=== PATIENT | male | born 1970 | race Caucasian/White ===

== ENCOUNTER 2016-04-26 10:05 | Emergency (ER) | payer BC, OTHER ==
[~2016-04-26] VITALS: Ht 182.9 cm; Wt 106.6 kg
[~2016-04-26 10:05] MED LIST: ALBUAER2 INH
[2016-04-26 10:11] VITALS: TEMP 36.4
[2016-04-26 10:49] LABS: HEMATOCRIT 46.2 % (42-52); MEAN CELL VOLUME 88.3 fL (80-100); MEAN CORPUSCULAR HEMOGLOBIN 30.6 pg (25-34); MEAN CORPUSCULAR HGB CONC 34.6 g/dl (32-36); MEAN PLATELET VOLUME 10.6 fL (7.4-10.4); PLATELET COUNT 271 K/uL (130-400); RED BLOOD COUNT 5.23 M/uL (4.7-6.1); WHITE BLOOD COUNT 8.29 K/uL (4.8-10.8)
[2016-04-26 10:59] LABS: PARTIAL THROMBOPLASTIN RATIO 1.1; PROTHROMBIN TIME (PATIENT) 10.4 SECONDS (9.0-12.0)
[2016-04-26 11:01] LABS: ALB/GLOB RATIO 1.2 (0.9-2); ALKALINE PHOSPHATASE 109 U/L (45-117); ALT/SGPT 53 U/L (12-78); AST/SGOT 34 U/L (15-37); BLOOD UREA NITROGEN 16 mg/dl (7-18); BUN/CREATININE RATIO 13.3 (10-20); CALCIUM 9.3 mg/dl (8.5-10.1); CARBON DIOXIDE 23 mmol/L (21-32); CHLORIDE 105 mmol/L (98-107); GLUCOSE 147 mg/dl (70-99); POTASSIUM 4.1 mmol/L (3.5-5.1); SODIUM 140 mmol/L (136-145)
[2016-04-26] MEDS ORDERED: AZITTAB PO (11:04)
[2016-04-26] MEDS ORDERED: ASPIRIN 81 MG CHEW PO STA (11:40)
[2016-04-26] MEDS ORDERED: NITROGLYCERIN 0.4 MG SL PER TAB CHARGE SL PRN ×2 (11:45→12:45)
--- NOTE | 2016-04-26 11:46 | DIAGNOSTIC IMAGING REPORT ---
CHEST ONE VIEW PORTABLE CLINICAL HISTORY: Atypical chest pain COMPARISON STUDY: No previous studies for comparison. FINDINGS: The cardiac and mediastinal contours are normal. There is no evidence of focal pulmonary consolidation. There is no evidence of failure. No pleural effusions are visualized.[ IMPRESSION: No active disease in the chest. Electronically signed by: Edgar Medina M.D. 04/26/2016 11:44 AM Dictated Date/Time: 04/26/2016 11:44 AM
[2016-04-26 12:20] VITALS: O2SAT 97
[2016-04-26 12:26] VITALS: Ht 182.9 cm; Wt 106.6 kg
[2016-04-26] MEDS ORDERED: MAGNESIUM HYDROXIDE SUSP 30 ML UDC PO PRN (12:45)
[2016-04-26] MEDS ORDERED: ONDANSETRON INJ 2 MG/ML 2 ML VIAL IV PRN (12:45)
[2016-04-26] MEDS ORDERED: POLYETHYLENE (MIRALAX) 17 GM PACK PO PRN (12:45)
[2016-04-26] MEDS ORDERED: ACETAMINOPHEN 325 MG TAB PO PRN (12:45)
[2016-04-26] MEDS ORDERED: MoRPHine SULFATE 2 MG/ML CARP IV PRN (12:45)
[2016-04-26] MEDS ORDERED: ALUMINUM/MAGNESIUM/SIMETH (MAALOX MAX) 30 ML UDC PO PRN (12:45)
[2016-04-26] MEDS ORDERED: ALBUTEROL HFA 8 GM INHALER INH PRN (13:00)
[2016-04-26] MEDS ORDERED: IV FLUIDS COMPLETED PRN (14:00)
--- NOTE | 2016-04-26 14:09 | Medical Consult ---
Consultation Date of Consultation: Apr 26, 2016. Attending Physician: Reason for Consultation: Evaluation for Admission History of Present Illness Mr. Mckinley is a 46 y/o male with PMHx of Asthma and HLD who presents to the ED for L sided chest pain x 5-6 days. He states that approx 5 days ago he develop a mild chest pain that was located in the L chest that is approx alf between the sternum and L nipple without radiation. He was going about his normal daily routine but denies over exertion. He cannot pinpoint a specific event that triggered this pain but states it has remained constant with a waxing and waning quality. This pain is aggravated even with minimal physical activity and reduces with rest but does not resolve. He describes the pain as aching predominantly but has intermittent sharp sensations when pain intensifies. On 04/22/16 he was having sore throat and cough and was seen in [facility] and started on Zpak and reports that URI symptoms have improved but did not notice a change with the CP. He did take one 81 mg ASA last night without relief. POA, he was sitting on his couch when the CP exacerbated and he rates it a 10/10 with associated SOB, nausea, and lightheadedness. Pain has been improving but still remains and he states it is a 2/10 even after nitro and ASA administration. Reports associated tingling of the fingers bilaterally. Initially it was only noticed in the R fingers but is now bilateral. He reports that this symptom started in the setting of this chest pain 5-6 days ago. Significant for a FMHx of OH and stents in father. States increase in stress level as patient's father is currently hospitalized. He denies fever/chills, diaphoresis, CP with deep breathing, vomiting, abdominal pain, dysuria, constipation/diarrhea. In the ED, he was treated with ASA 324 mg daily and Nitro x 1. He reports improvement in symptoms but not complete resolution. Initial cardiac enzymes negative. EKG with NSR with PVCs without evidence of ischemia or elevations. CXR is negative for acute cardiopulmonary findings. Will obtain another troponin with plans to perform stress today. Spoke with Dr. Perez, discussed the case with him. Will obtain repeat troponin with possible stress testing after 1500 if trop negative. Further intervention pending results of stress testing. If negative patient is suitable for D/C home. Family History Myocardial Infarction FATHER Social History Smoking Status: Former Smoker Smokeless Tobacco Use: No Alcohol Use: socially Drug Use: none Marital Status: Housing Status: lives with family Occupation Status: employed Allergies Coded Allergies: No Known Allergies (Unverified , 04/26/16) Current Inpatient Medications Current Inpatient Medications Medications (Trade) Dose Ordered Sig/La Route Start Time Stop Time Status Last Admin Dose Admin Nitroglycerin (Nitrostat Tab) 0.4 mg PRN PRN SL 04/26/16 11:45 05/26/16 11:44 04/26/16 11:58 0.4 MG Albuterol (Ventolin Hfa Inhaler) 2 puffs QID PRN INH 04/26/16 13:00 05/26/16 12:59 Review of Systems Constitutional: No chills, No fever Eyes: No worsening of vision ENT: No nasal symptoms, No sore throat Respiratory: + shortness of breath (resolved), No cough Cardiovascular: + chest pain (constant; wax and wanes), No edema, No palpitations Abdomen: + nausea (resolved), No GI bleeding, No constipation, No diarrhea, No pain, No vomiting Musculoskeletal: No calf pain, No swelling Genitourinary - Male: No dysuria Neurologic: + numbness/tingling (bilateral fingers) Psychiatric: + problem reported (reports increased stress) Hematologic / Lymphatic: No abnormal bleeding/bruising, No clotting problems Integumentary: No rash Physical Exam Date Time Temp Pulse Resp B/P Pulse Ox O2 Delivery O2 Flow Rate FiO2 04/26/16 13:22 87 04/26/16 12:26 Room Air 04/26/16 12:20 97 Nasal Cannula 2.0 04/26/16 11:57 85 18 135/100 97 Room Air 04/26/16 10:41 99 Room Air 04/26/16 10:40 82 19 154/90 100 Room Air 04/26/16 10:23 82 04/26/16 10:11 36.4 103 22 179/95 97 Room Air General Appearance: WD/WN, no apparent distress Head: normocephalic, atraumatic Eyes: PERRL, EOMI, sclerae normal ENT: hearing grossly normal, pharynx normal Neck: supple, no adenopathy, thyroid normal, no JVD, trachea midline Respiratory/Chest: lungs clear, normal breath sounds, no respiratory distress, no accessory muscle use Cardiovascular: regular rate, rhythm, no gallop, no murmur Abdomen/GI: normal bowel sounds, non tender, soft Back: normal inspection, no CVA tenderness Extremities/Musculoskelatal: no calf tenderness, no pedal edema, + pertinent finding (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; no motor abnormalities) Neurologic/Psych: alert, oriented x 3 Skin: normal color, warm/dry Laboratory Results Last 24 Hours Test 04/26/16 10:20 04/26/16 13:33 White Blood Count 8.29 K/uL Red Blood Count 5.23 M/uL Hemoglobin 16.0 g/dL Hematocrit 46.2 % Mean Corpuscular Volume 88.3 fL Mean Corpuscular Hemoglobin 30.6 pg Mean Corpuscular Hemoglobin Concent 34.6 g/dl RDW Standard Deviation 37.7 fL RDW Coefficient of Variation 11.8 % Platelet Count 271 K/uL Mean Platelet Volume 10.6 fL Prothrombin Time 10.4 SECONDS Prothromb Time International Ratio 1.0 Activated Partial Thromboplast Time 29.7 SECONDS Partial Thromboplastin Ratio 1.1 Sodium Level 140 mmol/L Potassium Level 4.1 mmol/L Chloride Level 105 mmol/L Carbon Dioxide Level 23 mmol/L Anion Gap 12.0 mmol/L Blood Urea Nitrogen 16 mg/dl Creatinine 1.20 mg/dl Est Creatinine Clear Calc Drug Dose 98.1 ml/min Estimated GFR () 84.1 Estimated GFR (Non- 72.6 BUN/Creatinine Ratio 13.3 Random Glucose 147 mg/dl Calcium Level 9.3 mg/dl Total Bilirubin 0.4 mg/dl Aspartate Amino Transf (AST/SGOT) 34 U/L Alanine Aminotransferase (ALT/SGPT) 53 U/L Alkaline Phosphatase 109 U/L Total Creatine Kinase 159 U/L Creatine Kinase MB 1.6 ng/ml Creatine Kinase MB Ratio 1.0 Troponin I < 0.015 ng/ml Total Protein 7.6 gm/dl Albumin 4.2 gm/dl Globulin 3.4 gm/dl Albumin/Globulin Ratio 1.2 Assessment & Plan Mr. Mckinley is a 46 y/o male with PMHx of Asthma and HLD who presents to the ED for L sided chest pain. Chest Pain: R/O ACS vs Angina vs Costochondritis vs Musculoskeletal vs GI vs Anxiety - Initial cardiac enzymes are negative with EKG of NSR with PVC without ST elevation or depressions or T wave abnormalities - Risk Factors: HLD (per patient), CP with rest, FMHx of father with OH in 50s - Obtain another troponin - Possible stress test on 04/26/16 to R/O ischemia or cardiac abnormalities Disposition: - Will obtain next troponin - if negative will discuss with Dr. Perez - Plan for possible stress testing after 1500 today - Suitable for D/C after stress if negative as cardiac etiology will be ruled out -- Recommend follow up with PCP in 1-2 weeks for monitoring PA Physician Supervision Note: I interviewed and examined the patient. Discussed with Annetta LUZ and agree with findings and plan as documented in the note. Any exceptions or clarifications are listed here: None PT has recently been treated for bronchitis, has ill father in hospital, developed chest pain at rest, no acute ECG changes or serology vitals stable car is regular, lungs are clear, no reproducible pain underwent stress echo, results are normal cardiac function recommend discharge, will start ppi and follow up with family doctor Documented By: Aime Braden
[2016-04-26] MEDS ORDERED: PRLSR20 PO (16:11)
--- NOTE | 2016-04-26 16:13 | Discharge Instructions ---
Discharge Instructions Admission Reason for Admission: Chest Pain Discharge Discharge Diagnosis / Problem: non cardiac chest pain Discharge Goals Goal(s): Diagnostic testing, Therapeutic intervention Activity Recommendations Activity Limitations: resume your previous activity Lifting Limitations: none Exercise/Sports Limitations: none . Instructions / Follow-Up Instructions / Follow-Up Since this maybe reflux, Rx for prilosec sent to pharmacy, recommend follow up with primary care provider Current Hospital Diet Patient's current hospital diet: AHA Diet (Heart Healthy) Discharge Diet Recommended Diet: Regular Diet Procedures Procedures Performed: cardiac stress echo negative for suggestion that pain was from heart(angina) Pending Studies Studies pending at discharge: no Medical Emergencies . Who to Call and When: Medical Emergencies: If at any time you feel your situation is an emergency, please call 911 immediately. . Non-Emergent Contact Non-Emergency issues call your: Primary Care Provider . . "Provider Documentation" section prepared by Aime Braden. VTE Core Measure Inpt VTE Proph given/why not?: Treatment not indicated
[2016-04-26 16:15] VITALS: BP 110/80; PULSE 102; O2SAT 96
--- NOTE | 2016-04-26 17:25 | EXERCISE STRESS ECHO ---
*NOTICE TO RECEIVING REPUBLICAN AGENCY This information is strictly Confidential and protected under [place] law. [place] law prohibits you from making any further disclosure of this information unless further disclosure is expressly permitted by the written consent of the person to whom it pertains or is authorized by law. A general authorization for the release of medical or other information is not sufficient for this purpose. Hospital accepts no responsibility if the information is made available to any other person, INCLUDING THE PATIENT. Interpretation Summary * Name: PRIYANKA LUCAS Study Date: 04/26/2016 03:07 PM BP: 122/76 mmHg * Patient Location: [address] HR: 75 * : 1970 (M/d/yyyy) Gender: Male Height: 72 in * Age: 46 yrs Ethnicity: [place] Weight: 235 lb * Ordering Physician: Annetta Kelly * Performed By: Veronika Galindo RDCS * * Reason For Study: Chest pain * BSA: 2.3 m2 * Quad and go study performed as per Dr. Perez's preference. * -- Conclusions -- * Normal stress echocardiogram at 10.9 METS and a peak heart rate of >100% maximum predicted. * No change in baseline chest pain. * No EKG changes. * Baseline echocardiogram notes normal left ventricular systolic function. Procedure Details * ECHOEX, CPT #46839 Left Ventricle * Resting wall motion: Normal. Stress wall motion: Appropriate increase in Left ventricular systolic function and decrease in cavity size. No stress induced segmental wall motion abnormalities. Stress Parameters * Normal baseline electrocardiogram. * Stress ECG: No ST changes. No arrhythmias. * The stress portion of this study was personally supervised by the undersigned interpreting physician. * Rest heart rate was '75' BPM. * Rest blood pressure was '122/76' * Maximum heart rate achieved was 184 bpm. * Maximum heart rate was 105 % of maximum age-predicted heart rate. * Maximum blood pressure was '157/58' * Total exercise time was '9:36' * Maximum exercise MET level achieved was '10.90' METS * Maximum treadmill speed was '4.20' miles per hour. * Maximum treadmill elevation was '16.00'% grade. * Exercise was terminated due to 'Patient fatigue and target heart rate achieved' MMode 2D Measurements and Calculations IVSd 1.4 cm LVIDd 4.3 cm LVIDs 2.8 cm LVPWd 0.98 cm IVS/LVPW 1.4 FS 35.2 % EDV(Teich) 81.5 ml ESV(Teich) 28.6 ml EF(Teich) 64.8 % EDV(cubed) 77.6 ml ESV(cubed) 21.1 ml EF(cubed) 72.8 % LV mass(C)d 174.9 grams LV mass(C)dI 76.7 grams/m\S\2 SV(Teich) 52.8 ml SI(Teich) 23.2 ml/m\S\2 SV(cubed) 56.4 ml SI(cubed) 24.7 ml/m\S\2 LA dimension 3.0 cm LVAd ap4 16.2 cm\S\2 LVLd ap4 8.3 cm EDV(MOD-sp4) 27.9 ml EDV(sp4-el) 26.9 ml LVAs ap4 9.3 cm\S\2 LVLs ap4 6.9 cm ESV(MOD-sp4) 10.9 ml ESV(sp4-el) 10.6 ml EF(MOD-sp4) 60.9 % EF(sp4-el) 60.7 % LVAd ap2 20.1 cm\S\2 LVLd ap2 8.1 cm EDV(MOD-sp2) 43.4 ml EDV(sp2-el) 42.3 ml LVAs ap2 11.6 cm\S\2 LVLs ap2 6.3 cm ESV(MOD-sp2) 17.5 ml ESV(sp2-el) 17.9 ml EF(MOD-sp2) 59.7 % EF(sp2-el) 57.6 % LVLd %diff -2.41 % EDV(MOD-bp) 35.0 ml LVLs %diff -9.64 % ESV(MOD-bp) 14.2 ml EF(MOD-bp) 59.5 % SV(MOD-sp4) 17.0 ml SI(MOD-sp4) 7.5 ml/m\S\2 SV(MOD-sp2) 25.9 ml SI(MOD-sp2) 11.4 ml/m\S\2 SV(MOD-bp) 20.8 ml SI(MOD-bp) 9.1 ml/m\S\2 SV(sp4-el) 16.3 ml SI(sp4-el) 7.2 ml/m\S\2 SV(sp2-el) 24.4 ml SI(sp2-el) 10.7 ml/m\S\2
[2016-04-27] MEDS ORDERED: ASPIRIN 81 MG ECTAB PO SCH (09:00)
--- NOTE | 2016-04-27 10:53 | EMERGENCY ROOM VISIT NOTE ---
ED Visit Note First contact with patient: 11:21 Chief Complaint: Chest pain. History of Present Illness: Mr. Mckinley is a 46 year-old white male who ambulates into the ED accompanied by his complaining of left sided chest pain. Historically patient reports he does not have a history of coronary artery disease but does have dyslipidemia. He reports his father had his first MD at age approximately 50 years old and since that time has had multiple stents Patient reports a acute onset of left sided chest pain that started approximately 5-6 days ago. The pain started when he was physically active. Since that time the pain has been constant but has waxed and waned in intensity based on his level of activity. The pain is currently placed left lateral to the sternum between the sternum and nipple. He currently describes the pain as an achy sensation and intermittently sharp. This morning approximately 10-15 minutes before he arrived he reports he was sitting on the couch and had a spike of his pain to a level of 10/10. At the same time he became nauseated and reports he felt lightheaded like he needed to pass out. The pain is nonradiating. The pain worsens with activity and is improved by rest. He reports taking 1 aspirin last night for pain without relief. Associated with the pain there has been paresthesias in the right upper extremity. Patient denies fevers, chills, sweats, skin eruptions, skin color changes, upper respiratory tract symptoms, wheezing, cough, orthopnea, dependent edema, previous clots, claudication, cramping, recent surgery/inactivity/extended travel, abdominal pain, nausea, vomiting, diarrhea, constipation, rectal bleeding, black/tarry stools, urinary symptoms, back/flank pain. Review of Systems: As noted above in history of present illness. All body systems were reviewed and found to be negative as noted above. Past Medical History: As previously noted, asthma, GERD. Current Medications: Prilosec, albuterol, Zithromax. Allergies to Medications: Patient denies. Social History: Patient is currently employed; he lives with his and children and feels safe in his home environment; he denies tobacco use and admits to rare alcohol use. Physical Examination: Vital Signs: Date Time Temp Pulse Resp B/P Pulse Ox O2 Delivery O2 Flow Rate FiO2 04/26/16 16:15 102 16 110/80 96 Room Air 04/26/16 14:56 81 18 131/82 98 Nasal Cannula 2.0 04/26/16 13:50 79 18 131/84 97 Nasal Cannula 2.0 04/26/16 13:22 87 04/26/16 12:26 Room Air 04/26/16 12:20 97 Nasal Cannula 2.0 04/26/16 11:57 85 18 135/100 97 Room Air 04/26/16 10:41 99 Room Air 04/26/16 10:40 82 19 154/90 100 Room Air 04/26/16 10:23 82 04/26/16 10:11 36.4 103 22 179/95 97 Room Air GENERAL: 46-year-old male in mild distress due to symptoms, nontoxic-appearing, afebrile and hemodynamically stable. NEUROLOGICAL: Awake, alert and oriented to person, place and time. Answering questions appropriately and following commands. Normal gait. Good hand eye coordination. SKIN: Warm, dry and pink. No soft tissue eruptions or trauma noted. HEENT: Atraumatic and normocephalic. PERRL. Sclera white and conjunctiva pink. Oral cavity moist and pink. Pharynx is nonerythematous or edematous. Speech normal. No lymphadenopathy. Trachea midline. No jugular venous distention. No carotid bruits. BACK: No tenderness over the bony spine. No CVA tenderness. THORAX: Lungs sounds are clear to auscultation and equal bilaterally with symmetrical chest wall. No wheezing, rales or rhonchi. No crepitus, tenderness , subcutaneous air or deformities noted. HEART: Regular rate and rhythm. No gallops, rubs or murmurs are appreciated. No lifts, heaves or thrills. PMI is not displaced. ABDOMEN: Flat, soft and nontender. Positive bowel sounds in all quadrants. No guarding, rigidity or organomegaly. EXTREMITIES: Moves all extremities well on command and with purpose. All distal neurovascular statuses are intact and equal bilaterally. No dependent edema or calf tenderness/cords. ED Course: Patient is assessed as noted above. Laboratory Testing: Test 04/26/16 10:20 Range/Units White Blood Count 8.29 4.8-10.8 K/uL Red Blood Count 5.23 4.7-6.1 M/uL Hemoglobin 16.0 14.0-18.0 g/dL Hematocrit 46.2 42-52 % Mean Corpuscular Volume 88.3 80-100 fL Mean Corpuscular Hemoglobin 30.6 25-34 pg Mean Corpuscular Hemoglobin Concent 34.6 32-36 g/dl RDW Standard Deviation 37.7 36.4-46.3 fL RDW Coefficient of Variation 11.8 11.5-14.5 % Platelet Count 271 130-400 K/uL Mean Platelet Volume 10.6 7.4-10.4 fL Prothrombin Time 10.4 9.0-12.0 SECONDS Prothromb Time International Ratio 1.0 0.9-1.1 Activated Partial Thromboplast Time 29.7 21.0-31.0 SECONDS Partial Thromboplastin Ratio 1.1 Sodium Level 140 136-145 mmol/L Potassium Level 4.1 3.5-5.1 mmol/L Chloride Level 105 98-107 mmol/L Carbon Dioxide Level 23 21-32 mmol/L Anion Gap 12.0 3-11 mmol/L Blood Urea Nitrogen 16 7-18 mg/dl Creatinine 1.20 0.60-1.40 mg/dl Est Creatinine Clear Calc Drug Dose 98.1 ml/min Estimated GFR () 84.1 Estimated GFR (Non- 72.6 BUN/Creatinine Ratio 13.3 10-20 Random Glucose 147 70-99 mg/dl Calcium Level 9.3 8.5-10.1 mg/dl Total Bilirubin 0.4 0.2-1 mg/dl Aspartate Amino Transf (AST/SGOT) 34 15-37 U/L Alanine Aminotransferase (ALT/SGPT) 53 12-78 U/L Alkaline Phosphatase 109 45-117 U/L Total Creatine Kinase 159 39-308 U/L Creatine Kinase MB 1.6 0.5-3.6 ng/ml Creatine Kinase MB Ratio 1.0 0-3.0 Troponin I < 0.015 0-0.045 ng/ml Total Protein 7.6 6.4-8.2 gm/dl Albumin 4.2 3.4-5.0 gm/dl Globulin 3.4 2.5-4.0 gm/dl Albumin/Globulin Ratio 1.2 0.9-2 Chest X-Rays: Were read by myself and the radiologist showing no acute infiltrates, effusions or pneumothorax. Normal heart silhouette and bony anatomy. EKG: Was read by myself and reviewed with Dr. Carranza; shows normal sinus rhythm with an occasional unifocal PVC. No acute ST changes consistent with acute infarction. No previous to compare. Patient was hydrated with normal saline and he received 324 mg of aspirin by mouth and was given 0.4 nitroglycerin sublingually; after his first sublingual tablet he had improvement of pain but I was not able to get a rating. Patient's case was reviewed with Dr. Carranza; we agreed on diagnostic approach, treatment, disposition and plan. Patient's case was consulted with case management and the hospitalist for medical observation/admission; in his decision and the hospitalist admit the patient have a stress test prior to admission. Care was transferred to Dr. Braden; please see his notes and orders for final disposition and plan. Patient was educated about tondiamond's findings. Clinical Impression: Acute chest pain. Decision-Making: Initially my differential diagnosis I considered acute coronary syndrome, thoracic aneurysm, pneumothorax, pneumonia, GERD, pulmonary embolism, musculoskeletal disorder and other causes. Disposition and Plan: Please see the hospitalist notes and orders for final disposition and plan.
== END 2016-04-26 16:33 | disposition home or self-care (01) ==
LOC: CANRESERV → ENRESERVTM → ENRESERVDT → C.EDB 10:07 → CANBEDREQ 13:18 → C.EDB 16:33
DX: R07.9 Chest pain, unspecified (principal); J45.909 Unspecified asthma, uncomplicated; E78.5 Hyperlipidemia, unspecified; Z87.891 Personal history of nicotine dependence; Z82.49 Family history of ischemic heart disease and other diseases of the circulatory system

== ENCOUNTER → 2016-07-07 | Outpatient (CLI) | payer OTHER ==
[~2016-07-07] MED LIST changes: +AZITTAB PO; +PRLSR20 PO
[2016-07-07 10:22] LABS: CHOLESTEROL/HDL RATIO 4.9
== END | disposition home or self-care (01) ==
LOC: C.RAD1850 08:44
PROVIDERS: ATTEND Family Medicine
DX: E78.5 Hyperlipidemia, unspecified (principal)

== ENCOUNTER → 2016-11-14 | Outpatient (CLI) | payer OTHER ==
[~2016-11-14] MED LIST changes: -PRLSR20 PO
== END | disposition home or self-care (01) ==
LOC: C.PATHSPEC 17:59
PROVIDERS: ATTEND Dermatology
DX: D23.30 Other benign neoplasm of skin of unspecified part of face (principal)

== ENCOUNTER 2018-05-20 19:37 | Observation (INO) ==
[2018-05-20 20:21] LABS: Basophils # (auto) 0.03 K/uL (0-0.2); Basophils % (auto) 0.3 %; Hematocrit (blood only) 44.7 % (42-52); Hemoglobin 15.3 g/dL (14.0-18.0); Immature Granulocytes # (auto) 0.09 K/uL (0.00-0.02); Immature Granulocytes % (auto) 0.9 %; Lymphocytes # (auto) 2.26 K/uL (1.2-3.4); Lymphocytes % (auto) 22.4 %; Mean Corpuscular Hgb Conc 34.2 g/dL (32-36); Mean Corpuscular Volume 89.9 fL (80-100); Mean Platelet Volume 10.6 fL (7.4-10.4); Monocytes # (auto) 0.83 K/uL (0.11-0.59); Monocytes % (auto) 8.2 %; Neutrophils # (auto) 6.66 K/uL (1.4-6.5); Neutrophils % (auto) 66.2 %; Platelet Count 268 K/uL (130-400); RDW Standard Deviation 38.7 fL (36.4-46.3); Red Blood Count 4.97 M/uL (4.7-6.1); White Blood Count 10.07 K/uL (4.8-10.8)
--- NOTE | 2018-05-20 20:24 | XRay Report ---
XR chest 1V portable HISTORY: 48 years-old Male Chest Pain acute atypical chest pain COMPARISON: Chest radiograph 05/18/2018 TECHNIQUE: Portable AP view of the chest FINDINGS: Cardiomediastinal and hilar silhouettes are within normal limits. No pneumothorax, pleural effusion, focal airspace consolidation or overt pulmonary edema. Bones of the chest appear grossly intact. IMPRESSION: No acute process. The above report was generated using voice recognition software. It may contain grammatical, syntax o r spelling errors. Electronically signed by: Jer Nixon M.D. 05/20/2018 8:23 PM
[2018-05-20 20:39] LABS: Blood Urea Nitrogen 19 mg/dl (7-18); Calcium 8.9 mg/dl (8.5-10.1); Carbon Dioxide 27 mmol/L (21-32); Chloride 106 mmol/L (98-107); Creatinine Clr Calc Pharmacy 87.2 ml/min; Est GFR (African American) 73.9; Est GFR (Non-African American) 63.8; Glucose 91 mg/dl (70-99); Potassium 3.9 mmol/L (3.5-5.1); Sodium 140 mmol/L (136-145)
[2018-05-20 20:43] LABS: Troponin I < 0.015 ng/ml (0-0.045)
--- NOTE | 2018-05-20 23:14 | History & Physical Report ---
Date of Service May 20, 2018 Assessment & Plan (1) Constricting chest pain often radiating down left arm: The patient was initially woken up from sleep by this pain. Is been persistent over the past 2 days but to a lesser extent. Very strong family history with his father, paternal grandfather and paternal uncle all having MIs at a young age. His sister recently had an ablation for an unknown process. The patient will be admitted to telemetry for serial cardiac enzymes, serial EKG's, cardiac rhythm monitoring and a 2-D echocardiogram with Dopplers. He has been given aspirin 324 mg today. Continue aspirin 81 mg daily. He had a negative stress echocardiogram 2 years ago. If his above workup is negative, consideration should be given to a stress echocardiogram versus cardiac catheterization due to very significant family history of premature coronary artery disease Present on Admission?: Yes (2) Hyperlipidemia: Continue atorvastatin 10 mg daily. Check a fasting lipid panel and hemoglobin A1c Present on Admission?: Yes (3) GERD (gastroesophageal reflux disease): Change omeprazole 20 mg daily to pantoprazole 40 mg daily Present on Admission?: Yes History of Present Illness Chief Complaint: The Patient presents to the emergency department with persistence of left-sided chest discomfort as was initially noted 2 days ago. Primary Care Provider: Deloris Vilchis MD The patient is a 48-year-old male who initially developed left-sided chest discomfort that woke him up 2 days ago. The pain at times did radiate to his left arm. As the pain persisted, the patient presented to the emergency department for assessment, had a negative workup at that time, was advised to be admitted, but he went home at that time. The pain has persisted but to less intensity for the past 2 days. He presents to the emergency department today due to a friend bring him in. The pain has been constant over the past 2 days, but he does report that at times he is not aware of it. His symptoms also initially included dizziness with some nausea upon standing, which is somewhat improved at this time. He had no previous occurrences of these symptoms. He has not had any change in his eating or exercise habits. He has a very strong family history of heart disease, with his father, paternal grandfather and paternal uncle all having MIs at a young age. His sister recently had an ablation for an unknown diagnosis. He reports having a negative stress echo test done 2 years ago. Allergies Allergy/AdvReac Type Severity Reaction Status Date / Time No Known Allergies Allergy Unknown Verified 05/20/18 22:16 Home Medications Home Medications Medication Instructions Recorded Confirmed Type atorvastatin 10 mg PO DAILY 05/18/18 05/20/18 History omeprazole 20 mg PO DAILY 05/18/18 05/20/18 History Past Med/Surg History Medical History High cholesterol Surgical History No pertinent past surgical history Family History Other Heart attack Social History Feels Safe at Home: Yes Smoking Status: Never smoker Review of Systems The patient denies palpitations, shortness of breath, dyspnea on exertion, cough , lower extremity swelling, sore throat, fevers, chills, sweats, weight change, fatigue, vomiting, diarrhea , constipation, abdominal pain, pelvic pain, blood in urine or stool, dysuria, urinary frequency or urgency, headache, memory loss, loss of consciousness, rash, abnormal bruising or bleeding, imbalance, focal or generalized weakness, numbness or tingling in right arm or bilateral legs, generalized arthralgias or myalgias, back or neck pain, or night sweats. The review of systems is otherwise negative other than for that already noted above, and at least 10 systems have been reviewed. Physical Exam 2 Vital Signs (Past 24 Hours): Last Vital Signs Temp 36.5 C 05/20/18 19:42 Pulse 85 05/20/18 21:31 Resp 20 05/20/18 21:31 BP 149/76 H 05/20/18 21:31 Pulse Ox 97 05/20/18 21:31 Physical Exam: The patient is awake, alert and oriented 3, well developed and well nourished, normocephalic and atraumatic, lying in bed and in no acute distress. HEENT--PERRL, EOMI, mucous membranes and oropharynx dry. Neck--supple. No JVD. No bruits. Thyroid normal, trachea midline, no adenopathy. Heart--normal S1 and S2. No murmurs, rubs or gallops. Lungs--clear bilaterally, no respiratory distress, no accessory muscle use. Abdomen--normal bowel sounds and soft. Nontender. Nondistended, no hernias or masses, no organomegaly. Extremities--no cyanosis or clubbing. No edema. There are good distal pulses b/ l. Dermatologic--normal skin turgor, normal color, no abnormal lymph nodes, no rash. Neurologic--cranial nerves II through XII grossly intact. Rheumatologic--normal range of motion. Psychiatric--normal affect. Results & Data Laboratory Results Laboratory Results WBC 10.07 K/uL (4.8-10.8) 05/20/18 20:00 RBC 4.97 M/uL (4.7-6.1) 05/20/18 20:00 Hgb 15.3 g/dL (14.0-18.0) 05/20/18 20:00 Hct 44.7 % (42-52) 05/20/18 20:00 MCV 89.9 fL (80-100) 05/20/18 20:00 MCH 30.8 pg (25-34) 05/20/18 20:00 MCHC 34.2 g/dL (32-36) 05/20/18 20:00 RDW Std Deviation 38.7 fL (36.4-46.3) 05/20/18 20:00 RDW Coeff of Juan F 12.0 % (11.5-14.5) 05/20/18 20:00 Plt Count 268 K/uL (130-400) 05/20/18 20:00 MPV 10.6 fL (7.4-10.4) H 05/20/18 20:00 Immature Gran % (Auto) 0.9 % 05/20/18 20:00 Neut % (Auto) 66.2 % 05/20/18 20:00 Lymph % (Auto) 22.4 % 05/20/18 20:00 [place] % (Auto) 8.2 % 05/20/18 20:00 Eos % (Auto) 2.0 % 05/20/18 20:00 Baso % (Auto) 0.3 % 05/20/18 20:00 Immature Gran # (Auto) 0.09 K/uL (0.00-0.02) H 05/20/18 20:00 Neut # (Auto) 6.66 K/uL (1.4-6.5) H 05/20/18 20:00 Lymph # (Auto) 2.26 K/uL (1.2-3.4) 05/20/18 20:00 [place] # (Auto) 0.83 K/uL (0.11-0.59) H 05/20/18 20:00 Eos # (Auto) 0.20 K/uL (0-0.5) 05/20/18 20:00 Baso # (Auto) 0.03 K/uL (0-0.2) 05/20/18 20:00 Sodium 140 mmol/L (136-145) 05/20/18 20:00 Potassium 3.9 mmol/L (3.5-5.1) 05/20/18 20:00 Chloride 106 mmol/L (98-107) 05/20/18 20:00 Carbon Dioxide 27 mmol/L (21-32) 05/20/18 20:00 Anion Gap 6.0 (3-11) 05/20/18 20:00 BUN 19 mg/dl (7-18) H 05/20/18 20:00 Creatinine 1.32 mg/dl (0.6-1.4) 05/20/18 20:00 Est Cr Clr Drug Dosing 87.2 ml/min 05/20/18 20:00 Est GFR ( Amer) 73.9 05/20/18 20:00 Est GFR (Non-Af Amer) 63.8 05/20/18 20:00 BUN/Creatinine Ratio 14.0 (10-20) 05/20/18 20:00 Glucose 91 mg/dl (70-99) 05/20/18 20:00 Calcium 8.9 mg/dl (8.5-10.1) 05/20/18 20:00 Troponin I < 0.015 ng/ml (0-0.045) 05/20/18 20:00 Lipase 132 U/L (73-393) 05/20/18 20:00 Diagnostic Findings [facility], [place] [phone] XRay Report Patient: Tanmay LUCAS Date: 05/20/18 MR#: [id number]: [address] Acct ID:[id number]: Date: [address] Zip: [place] [address] Age: 48Location: ED Sex: M Room/Bed: Att Phy: Diagnosis: CHEST PAIN Jayne Phy: Deloris Vilchis, MDService Date: 05/20/18 Fam Phy: Interpreting Phy: Diego Nixon Admit Phy: Ordering Phy: Roger Lopez M.D. cc: ~ XR chest 1V portable HISTORY: 48 years-old Male Chest Pain acute atypical chest pain COMPARISON: Chest radiograph 05/18/2018 TECHNIQUE: Portable AP view of the chest FINDINGS: Cardiomediastinal and hilar silhouettes are within normal limits. No pneumothorax, pleural effusion, focal airspace consolidation or overt pulmonary edema. Bones of the chest appear grossly intact. IMPRESSION: No acute process. The above report was generated using voice recognition software. It may contain grammatical, syntax or spelling errors. Electronically signed by: Jer Nixon M.D. 05/20/2018 8:23 PM Dictated: 05/20/182021 Transcribed: 05/20/182021 Code Status & VTE Plan Code Status Full code VTE Prophylaxis Plan VTE Prophylaxis will be ordered: Yes
--- NOTE | 2018-05-21 00:27 | Emergency Department Note ---
Entered by Noel Marquez acting as a scribe for Roger Lopez History of Present Illness General Chief complaint: Referred by Doctor Stated complaint: CHEST PAIN Time Seen by Provider: 05/20/18 19:49 Source: patient History of Present Illness Onset (ago): day(s) 3 Location: chest Pain Consistency: + constant Maximum Pain Intensity: 3 Associated symptoms: + denies other symptoms (abdominal pain, coughing up blood) ; no shortness of breath The patient is a 48 year old male who presents to the Emergency Room with complaints of constant chest pain beginning three days ago. He currently rates his discomfort a 3/10 in severity. The patient states he was here Sunday for similar symptoms and had a negative work-up. He reports he was recommended to be admitted but deferred it because of the negative work-up. The patient notes his symptoms normally are intermittent, but it has not gone away. He states it does not radiate anywhere. The patient reports he took 4 baby aspirin this morning and currently takes Omeprazole for maintenance. He notes his PCP is JUSTIN , and he has not seen a sociology instructor. The patient denies shortness of breath, recent travel via plane or car, coughing up blood, using hormone creams, abdominal pain, and a history of a DVT or PE. Home Medications Home Medications Medication Instructions Recorded Confirmed Type atorvastatin 10 mg PO DAILY 05/18/18 05/20/18 History omeprazole 20 mg PO DAILY 05/18/18 05/20/18 History Allergies Allergy/AdvReac Type Severity Reaction Status Date / Time No Known Allergies Allergy Unknown Verified 05/20/18 22:16 Past Med/Surg History Medical History High cholesterol Surgical History No pertinent past surgical history Family History Other Heart attack Social History Feels Safe at Home: Yes Smoking Status: Never smoker Review of Systems See HPI for pertinent positives & negatives. and A total of 10 systems reviewed and were otherwise negative Physical Exam Vital Signs Vital Signs - 24 hr 05/20/18 19:42 05/20/18 19:53 05/20/18 20:45 Temperature 36.5 C Temperature Source Oral Sepsis Recent Fever Within 48 Hours No Sepsis Action Taken by Nursing No Action Required Pulse Rate 85 81 83 Pulse Rate [Right Finger] Pulse Rhythm Regular Pulse Rhythm [Right Finger] Pulse Strength [Right Finger] Respiratory Rate 18 20 26 H Respiratory Effort / Characteristics Non-Labored Spontaneous Respiratory Depth Normal Respiratory Pattern Blood Pressure 126/87 135/87 Blood Pressure [Right Arm] Blood Pressure Mean 100 103 Blood Pressure Mean [Right Arm] Blood Pressure Position Sitting Blood Pressure Position [Right Arm] Pulse Oximetry 98 94 93 Oxygen Delivery Method Room Air Room Air 05/20/18 20:57 05/20/18 21:00 05/20/18 21:10 Temperature Temperature Source Sepsis Recent Fever Within 48 Hours Sepsis Action Taken by Nursing Pulse Rate 82 84 90 Pulse Rate [Right Finger] Pulse Rhythm Pulse Rhythm [Right Finger] Pulse Strength [Right Finger] Respiratory Rate 17 15 19 Respiratory Effort / Characteristics Respiratory Depth Respiratory Pattern Blood Pressure 137/77 Blood Pressure [Right Arm] Blood Pressure Mean 97 Blood Pressure Mean [Right Arm] Blood Pressure Position Blood Pressure Position [Right Arm] Pulse Oximetry 95 96 96 Oxygen Delivery Method 05/20/18 21:15 05/20/18 21:20 05/20/18 21:30 Temperature Temperature Source Sepsis Recent Fever Within 48 Hours Sepsis Action Taken by Nursing Pulse Rate 77 83 78 Pulse Rate [Right Finger] Pulse Rhythm Pulse Rhythm [Right Finger] Pulse Strength [Right Finger] Respiratory Rate 23 19 14 Respiratory Effort / Characteristics Respiratory Depth Respiratory Pattern Blood Pressure 133/81 149/76 H Blood Pressure [Right Arm] Blood Pressure Mean 98 100 Blood Pressure Mean [Right Arm] Blood Pressure Position Blood Pressure Position [Right Arm] Pulse Oximetry 97 96 96 Oxygen Delivery Method 05/20/18 21:31 05/20/18 21:40 05/20/18 21:45 Temperature Temperature Source Sepsis Recent Fever Within 48 Hours Sepsis Action Taken by Nursing Pulse Rate 77 89 Pulse Rate [Right Finger] 85 Pulse Rhythm Pulse Rhythm [Right Finger] Regular Pulse Strength [Right Finger] Normal Respiratory Rate 20 18 19 Respiratory Effort / Characteristics Non-Labored Spontaneous Respiratory Depth Normal Respiratory Pattern Regular Blood Pressure 133/83 Blood Pressure [Right Arm] 149/76 H Blood Pressure Mean 99 Blood Pressure Mean [Right Arm] 100 Blood Pressure Position Blood Pressure Position [Right Arm] Sitting Pulse Oximetry 97 95 96 Oxygen Delivery Method Room Air 05/20/18 21:50 05/20/18 22:00 05/20/18 22:10 Temperature Temperature Source Sepsis Recent Fever Within 48 Hours Sepsis Action Taken by Nursing Pulse Rate 84 82 83 Pulse Rate [Right Finger] Pulse Rhythm Pulse Rhythm [Right Finger] Pulse Strength [Right Finger] Respiratory Rate 27 H 16 18 Respiratory Effort / Characteristics Respiratory Depth Respiratory Pattern Blood Pressure 148/94 H Blood Pressure [Right Arm] Blood Pressure Mean 112 Blood Pressure Mean [Right Arm] Blood Pressure Position Blood Pressure Position [Right Arm] Pulse Oximetry 97 97 95 Oxygen Delivery Method 05/20/18 22:15 05/20/18 22:20 05/20/18 22:30 Temperature Temperature Source Sepsis Recent Fever Within 48 Hours Sepsis Action Taken by Nursing Pulse Rate 92 H 79 90 Pulse Rate [Right Finger] Pulse Rhythm Pulse Rhythm [Right Finger] Pulse Strength [Right Finger] Respiratory Rate 21 10 L 15 Respiratory Effort / Characteristics Respiratory Depth Respiratory Pattern Blood Pressure 153/86 H 132/87 Blood Pressure [Right Arm] Blood Pressure Mean 108 102 Blood Pressure Mean [Right Arm] Blood Pressure Position Blood Pressure Position [Right Arm] Pulse Oximetry 98 95 97 Oxygen Delivery Method 05/20/18 22:40 05/20/18 22:45 05/20/18 22:50 Temperature Temperature Source Sepsis Recent Fever Within 48 Hours Sepsis Action Taken by Nursing Pulse Rate 75 83 82 Pulse Rate [Right Finger] Pulse Rhythm Pulse Rhythm [Right Finger] Pulse Strength [Right Finger] Respiratory Rate 14 18 14 Respiratory Effort / Characteristics Respiratory Depth Respiratory Pattern Blood Pressure 152/93 H Blood Pressure [Right Arm] Blood Pressure Mean 112 Blood Pressure Mean [Right Arm] Blood Pressure Position Blood Pressure Position [Right Arm] Pulse Oximetry 96 97 95 Oxygen Delivery Method 05/20/18 23:00 05/20/18 23:10 05/20/18 23:15 Temperature Temperature Source Sepsis Recent Fever Within 48 Hours Sepsis Action Taken by Nursing Pulse Rate 81 84 87 Pulse Rate [Right Finger] Pulse Rhythm Pulse Rhythm [Right Finger] Pulse Strength [Right Finger] Respiratory Rate 16 18 13 Respiratory Effort / Characteristics Respiratory Depth Respiratory Pattern Blood Pressure 152/84 H 150/90 H Blood Pressure [Right Arm] Blood Pressure Mean 106 110 Blood Pressure Mean [Right Arm] Blood Pressure Position Blood Pressure Position [Right Arm] Pulse Oximetry 96 94 96 Oxygen Delivery Method 05/20/18 23:20 05/20/18 23:30 05/20/18 23:40 Temperature Temperature Source Sepsis Recent Fever Within 48 Hours Sepsis Action Taken by Nursing Pulse Rate 78 91 H 90 Pulse Rate [Right Finger] Pulse Rhythm Pulse Rhythm [Right Finger] Pulse Strength [Right Finger] Respiratory Rate 14 17 17 Respiratory Effort / Characteristics Respiratory Depth Respiratory Pattern Blood Pressure 163/86 H Blood Pressure [Right Arm] Blood Pressure Mean 111 Blood Pressure Mean [Right Arm] Blood Pressure Position Blood Pressure Position [Right Arm] Pulse Oximetry 95 96 95 Oxygen Delivery Method 05/20/18 23:45 05/20/18 23:50 05/21/18 00:00 Temperature Temperature Source Sepsis Recent Fever Within 48 Hours Sepsis Action Taken by Nursing Pulse Rate 86 74 83 Pulse Rate [Right Finger] Pulse Rhythm Pulse Rhythm [Right Finger] Pulse Strength [Right Finger] Respiratory Rate 18 15 17 Respiratory Effort / Characteristics Respiratory Depth Respiratory Pattern Blood Pressure 151/82 H 137/84 Blood Pressure [Right Arm] Blood Pressure Mean 105 101 Blood Pressure Mean [Right Arm] Blood Pressure Position Blood Pressure Position [Right Arm] Pulse Oximetry 97 95 96 Oxygen Delivery Method 05/21/18 00:10 Temperature Temperature Source Sepsis Recent Fever Within 48 Hours Sepsis Action Taken by Nursing Pulse Rate 90 Pulse Rate [Right Finger] Pulse Rhythm Pulse Rhythm [Right Finger] Pulse Strength [Right Finger] Respiratory Rate 16 Respiratory Effort / Characteristics Respiratory Depth Respiratory Pattern Blood Pressure Blood Pressure [Right Arm] Blood Pressure Mean Blood Pressure Mean [Right Arm] Blood Pressure Position Blood Pressure Position [Right Arm] Pulse Oximetry Oxygen Delivery Method GENERAL: He is oriented to person, place, and time. He appears well-developed and well-nourished. He does not appear distressed. HENT: Exam performed. Head: Normocephalic and atraumatic. Right Ear: External ear normal. No mastoid tenderness. Left Ear: External ear normal. No mastoid tenderness. Mouth/Throat: The oropharynx is clear and moist. No trismus in the jaw. No dental abscesses or uvula swelling. No oropharyngeal exudate or tonsillar abscesses. EYES: Conjunctivae and EOM are normal. Pupils are equal, round, and reactive to light. Right eye exhibits no discharge. Left eye exhibits no discharge. No scleral icterus. NECK: Normal range of motion. Neck supple. No JVD present. No spinous process tenderness present. No carotid bruit present. No rigidity. No tracheal deviation and normal range of motion present. No Brudzinski's sign and no Kernig 's sign noted. CV: Normal rate, regular rhythm, normal heart sounds and intact distal pulses. There is no peripheral edema. Palpable radial pulses bue. PULM/CHEST: Effort normal and breath sounds normal. No respiratory distress. No stridor. He has no wheezes. He has no rales. Chest Wall: He exhibits no tenderness. ABD: The abdomen is soft. Bowel sounds are normal. He has no distension. No mass is present. There is no tenderness. There is no rebound, no guarding, no Oconnell's sign and no tenderness at McBurney's point. Rovsig negative MUSC/SKEL: Normal range of motion. There is no peripheral edema, tenderness or deformity. LYMPH: No cervical adenopathy. NEURO: He is alert and oriented to person, place, and time. He has normal strength. No cranial nerve deficit or sensory deficit. Coordination and gait normal. GCS eye subscore is 4. GCS verbal subscore is 5. GCS motor subscore is 6. cerbellar tests wnl. SKIN: Skin is warm and dry. He is not diaphoretic. PSYCH: He has a normal mood and affect. His behavior is normal. Judgment and thought content normal. Course 1950: Past medical records reviewed. The patient was evaluated in room C08, and a complete history and physical examination were performed. EMR reviewed. Patient was seen in the emergency department 3 days ago. Labs and imaging at that time were negative. According to chart the patient was offered inpatient observation/admission, however he declined. 2120: Vital signs stable. Labs wnl. Imaging wnl. I had a long discussion with the patient and family who agreed with to an observation to rule out ACS. I reviewed the patient's case with Dr. Sanchez, [facility] Hospitalist. He will evaluate the patient for further management. Medical Decision Making Medical Records Attestation: I reviewed the patient's medical records. Home Medications Current Medication List: was personally reviewed by me Laboratory Data Attestation: I reviewed the patient's lab results. Result diagrams: 05/20/18 20:00 05/20/18 20:00 Lab Results 05/20/18 05/20/18 Range/Units 20:00 20:00 WBC 10.07 (4.8-10.8) K/uL RBC 4.97 (4.7-6.1) M/uL Hgb 15.3 (14.0-18.0) g/dL Hct 44.7 (42-52) % MCV 89.9 (80-100) fL MCH 30.8 (25-34) pg MCHC 34.2 (32-36) g/dL RDW Std Deviation 38.7 (36.4-46.3) fL RDW Coeff of Juan F 12.0 (11.5-14.5) % Plt Count 268 (130-400) K/uL MPV 10.6 H (7.4-10.4) fL Immature Gran % (Auto) 0.9 % Neut % (Auto) 66.2 % Lymph % (Auto) 22.4 % [place] % (Auto) 8.2 % Eos % (Auto) 2.0 % Baso % (Auto) 0.3 % Immature Gran # (Auto) 0.09 H (0.00-0.02) K/uL Neut # (Auto) 6.66 H (1.4-6.5) K/uL Lymph # (Auto) 2.26 (1.2-3.4) K/uL [place] # (Auto) 0.83 H (0.11-0.59) K/uL Eos # (Auto) 0.20 (0-0.5) K/uL Baso # (Auto) 0.03 (0-0.2) K/uL Sodium 140 (136-145) mmol/L Potassium 3.9 (3.5-5.1) mmol/L Chloride 106 (98-107) mmol/L Carbon Dioxide 27 (21-32) mmol/L Anion Gap 6.0 (3-11) BUN 19 H (7-18) mg/dl Creatinine 1.32 (0.6-1.4) mg/dl Est Cr Clr Drug Dosing 87.2 ml/min Est GFR ( Amer) 73.9 Est GFR (Non-Af Amer) 63.8 BUN/Creatinine Ratio 14.0 (10-20) Glucose 91 (70-99) mg/dl Calcium 8.9 (8.5-10.1) mg/dl Troponin I < 0.015 (0-0.045) ng/ml Lipase 132 (73-393) U/L Imaging Data Radiologist's Impression: Radiology results as stated below per my review and the radiologist's interpretation: XR chest 1V portable HISTORY: 48 years-old Male Chest Pain acute atypical chest pain COMPARISON: Chest radiograph 05/18/2018 TECHNIQUE: Portable AP view of the chest FINDINGS: Cardiomediastinal and hilar silhouettes are within normal limits. No pneumothorax, pleural effusion, focal airspace consolidation or overt pulmonary edema. Bones of the chest appear grossly intact. IMPRESSION: No acute process. The above report was generated using voice recognition software. It may contain grammatical, syntax or spelling errors. Electronically signed by: Jer Nixon M.D. 05/20/2018 8:23 PM ECG Data Attestation: I personally reviewed and interpreted this ECG as follows: Indication: chest pain Rate (beats per minute): 72 Rhythm: sinus with SA Findings: + other (MD, QRS, and QTc intervals are wnl.); no ST depression and no ST elevation Blood Pressure Blood Pressure Findings: Elevated blood pressure Blood Pressure Disposition: further management by hospitalist MDM Narrative 1950: Past medical records reviewed. The patient was evaluated in room C08, and a complete history and physical examination were performed. EMR reviewed. Patient was seen in the emergency department 3 days ago. Labs and imaging at that time were negative. According to chart the patient was offered inpatient observation/admission, however he declined. 2120: Vital signs stable. Labs wnl. Imaging wnl. I had a long discussion with the patient and family who agreed with to an observation to rule out ACS. I reviewed the patient's case with Dr. Sanchez, [facility] Hospitalist. He will evaluate the patient for further management. Impression & Plan Chest pain Discharge Plan Visit Data Chief Complaint: Referred by Doctor Stated Complaint: CHEST PAIN ED Provider: Roger Lopez Discharge Problem: Chest pain Patient Disposition: Being Evaluated by Hospitalist Discharge Instructions Interventions: ED Discharge Assessment Last Done: 05/21/18 00:18 Forms Stand Alone Forms: My [employer] Prescriptions Prescriptions: No Action atorvastatin 10 mg tablet 10 mg PO DAILY RF: 0 omeprazole 20 mg capsule,delayed release(DR/EC) 20 mg PO DAILY RF: 0 Referrals Referrals: Deloris Vilchis MD [Primary Care Provider] - The scribe's documentation has been prepared under my direction and personally reviewed by me in its entirety. I confirm that the note above accurately reflects all work, treatment, procedures, and medical decision making performed by me.
[2018-05-21] MEDS ORDERED: ALUMINUM/MAGNESIUM SUSP 30 ML UDC PO PRN (00:59)
[2018-05-21] MEDS ORDERED: ACETAMINOPHEN 1000 MG/100 ML IV IV PRN (00:59)
[2018-05-21] MEDS ORDERED: ACETAMINOPHEN 325 MG TAB PO PRN (00:59)
[2018-05-21] MEDS ORDERED: ONDANSETRON INJ 2 MG/ML 2 ML VIAL IV PRN (00:59)
[2018-05-21] MEDS ORDERED: MAGNESIUM HYDROXIDE SUSP 30 ML UDC PO PRN (00:59)
[2018-05-21 07:01] LABS: Basophils # (auto) 0.04 K/uL (0-0.2); Basophils % (auto) 0.4 %; Eosinophils # (auto) 0.21 K/uL (0-0.5); Hematocrit (blood only) 46.2 % (42-52); Hemoglobin 15.4 g/dL (14.0-18.0); Lymphocytes # (auto) 2.48 K/uL (1.2-3.4); Lymphocytes % (auto) 23.8 %; Mean Corpuscular Hgb Conc 33.3 g/dL (32-36); Mean Corpuscular Volume 90.4 fL (80-100); Mean Platelet Volume 10.3 fL (7.4-10.4); Monocytes # (auto) 0.98 K/uL (0.11-0.59); Monocytes % (auto) 9.4 %; Neutrophils # (auto) 6.59 K/uL (1.4-6.5); Neutrophils % (auto) 63.4 %; Platelet Count 266 K/uL (130-400); RDW Standard Deviation 39.7 fL (36.4-46.3); Red Blood Count 5.11 M/uL (4.7-6.1)
[2018-05-21 07:12] LABS: Partial Thromboplastin Ratio 1.2; Partial Thromboplastin Time 31.3 Seconds (21.0-31.0); Prothrombin Time 10.5 Seconds (9.0-12.0)
[2018-05-21 07:31] LABS: Est GFR (African American) 77.5; Est GFR (Non-African American) 66.8; Potassium 3.6 mmol/L (3.5-5.1)
[2018-05-21 07:32] LABS: Albumin Level 3.9 gm/dl (3.4-5.0); BUN Creatinine Ratio 12.5 (10-20); Calcium 8.3 mg/dl (8.5-10.1); Creatinine Clr Calc Pharmacy 123.3 ml/min
[2018-05-21 07:35] LABS: Bilirubin,Total 0.7 mg/dl (0.2-1); Globulin 3.8 gm/dl (2.5-4.0); Total Protein 7.7 gm/dl (6.4-8.2)
[2018-05-21] MEDS ORDERED: PERFLUTREN LIPID MICROSPHERE (DEFINITY) IV ONE (08:39)
[2018-05-21] MEDS ORDERED: PANTOprazole 40 MG TAB PO SCH (09:00)
[2018-05-21] MEDS ORDERED: ASPIRIN 81 MG ECTAB PO SCH (09:00)
[2018-05-21] MEDS ORDERED: ATORVASTATIN 10 MG TAB PO SCH (09:00)
--- NOTE | 2018-05-21 09:46 | Cardiology Consultation ---
Date of Consultation May 21, 2018 Assessment & Plan (1) Chest pain: Mr. Mckinley is a 48 year old male with a history of GERD, Asthma, Dyslipidemia (dx'ed 2 years ago), and Family History of Premature CAD who was admitted 05/20/2018 with a Left Sided Chest Pain with associated Tingling in his Left Arm, Dizziness, and occasionally associated Nausea -- but no associated vomiting, diaphoresis, or dyspnea. Symptoms have been present continuously x 3 days (although less intensely). Chest pain is not positional, pleuritic, and is not reproducible with palpation -- but it remains an atypical chest pain due to its duration. Serial cardiac enzymes and serial EKG's are unremarkable. Recommend the following: -- Begin Aspirin 81 mg daily for primary prevention. -- Continue Atorvastatin but consider titrating to 40 mg daily. -- Begin Metoprolol Succinate ER 50 mg daily (after stress echo completed) -- Stress Echocardiogram will be completed this morning. 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 (3) GERD (gastroesophageal reflux disease): -- Continue Protonix 40 mg daily. History of Present Illness Reason for Consultation: -- CHEST PAIN. -- FAMILY HISTORY OF PREMATURE CAD. Requesting Physician: Aime Braden MD Attending Physician: Harinder Perez MD History of Present Illness Mr. Mckinley is a 48 year old male with a history of GERD, Asthma, Dyslipidemia (dx'ed 2 years ago), and Family History of Premature CAD who was awakened at 0400 on 05/18/2018 with a Left Sided Chest Pain with associated Tingling in his Left Arm, Dizziness, and occasionally associated Nausea -- but no associated vomiting, diaphoresis, or dyspnea. These symptoms lasted for hours -- which prompted an ER visit on 05/18/2018. EKG's at that time showed no acute changes and cardiac enzymes were negative. Patient was advised to be admitted -- but he refused to stay. His Left Sided Chest Pain persisted throughout the ensuing 2 days but was less severe. Symptoms have been present all day, every day since then -- although sometimes the symptoms are much less noticeable. He feels minimal symptoms when lying quietly -- but as soon as he gets up and does the slightest activity symptoms worsen. Today while cleaning up in the bathroom with a washcloth he felt poorly and noticed an elevated heart rate (120 bpm in Sinus Tachycardia on monitor). Patient has been compliant with Atorvastatin over the past 2 years. He had a negative stress test 2 years ago. Allergies Allergy/AdvReac Type Severity Reaction Status Date / Time No Known Allergies Allergy Unknown Verified 05/20/18 22:16 Home Medications Home Medications Medication Instructions Recorded Confirmed Type atorvastatin 10 mg PO DAILY 05/18/18 05/20/18 History omeprazole 20 mg PO DAILY 05/18/18 05/20/18 History Patient History Medical History Hyperlipidemia Surgical History No pertinent past surgical history Family History Other Heart attack Social History Current Living Situation: Spouse and Family Other Information That Helps Us Care for You: No Feels Safe at Home: Yes Safety Concerns: Feels Safe At This Time Smoking Status: Never smoker Hx Alcohol Use: Yes Alcohol type: beer and hard liquor Alcohol Intake Frequency : holidays/special occasions only Hx Substance Use: No Beliefs That Will Affect Care: None Preferred Language: Armenian Communication Ability: Effective Physical Exam 2 Vital Signs (Past 24 Hours): Last Vital Signs Temp 36.7 C 05/21/18 07:59 Pulse 95 H 05/21/18 07:59 Resp 16 05/21/18 07:59 BP 147/83 H 05/21/18 07:59 Pulse Ox 96 05/21/18 07:59 Physical Exam: General: Patient in no acute distress. HEENT: Head is atraumatic, normocephalic. EOMs intact. Sclerae anicteric. Facies symmetric. No perioral cyanosis. Neck: No JVD. Carotid upstrokes +2 bilaterally without bruits. JVP is at the level of the clavicle sitting upright. Chest and Lungs: Clear to auscultation throughout all lung jeong, no wheezes, rales, or rhonchi. No reproducible chest wall tenderness. CVS: S1 and S2 are regular without murmurs, gallops, or rubs. PMI is nonpalpable. No lifts, heaves, or thrills. No abdominal aortic or renal bruits. Abdominal Exam: Bowel sounds present. No masses, organomegaly, or tenderness. Extremities: No clubbing, cyanosis, or edema. Intact posterior tibial and radial pulses bilaterally. Neurologic Exam: Patient is awake, alert, and oriented. Pleasant and cooperative. Answers questions appropriately. Speech is clear. Normal movement in all 4 extremities. Gait pattern is unremarkable. TELEMETRY: -- NSR in 70's to 90's bpm to sinus tachycardia with activity. Results & Data Laboratory Results Laboratory Results - last 24 hr 05/20/18 05/20/18 05/21/18 20:00 20:00 01:14 WBC 10.07 RBC 4.97 Hgb 15.3 Hct 44.7 MCV 89.9 MCH 30.8 MCHC 34.2 RDW Std Deviation 38.7 RDW Coeff of Juan F 12.0 Plt Count 268 MPV 10.6 H Immature Gran % (Auto) 0.9 Neut % (Auto) 66.2 Lymph % (Auto) 22.4 [place] % (Auto) 8.2 Eos % (Auto) 2.0 Baso % (Auto) 0.3 Immature Gran # (Auto) 0.09 H Neut # (Auto) 6.66 H Lymph # (Auto) 2.26 [place] # (Auto) 0.83 H Eos # (Auto) 0.20 Baso # (Auto) 0.03 PT INR APTT PTT Ratio Sodium 140 Potassium 3.9 Chloride 106 Carbon Dioxide 27 Anion Gap 6.0 BUN 19 H Creatinine 1.32 Est Cr Clr Drug Dosing 87.2 Est GFR ( Amer) 73.9 Est GFR (Non-Af Amer) 63.8 BUN/Creatinine Ratio 14.0 Glucose 91 Calcium 8.9 Total Bilirubin AST ALT Alkaline Phosphatase Troponin I < 0.015 < 0.015 Total Protein Albumin Globulin Albumin/Globulin Ratio Lipase 132 05/21/18 05/21/18 05/21/18 06:37 06:37 06:37 WBC 10.40 RBC 5.11 Hgb 15.4 Hct 46.2 MCV 90.4 MCH 30.1 MCHC 33.3 RDW Std Deviation 39.7 RDW Coeff of Juan F 12.0 Plt Count 266 MPV 10.3 Immature Gran % (Auto) 1.0 Neut % (Auto) 63.4 Lymph % (Auto) 23.8 [place] % (Auto) 9.4 Eos % (Auto) 2.0 Baso % (Auto) 0.4 Immature Gran # (Auto) 0.10 H Neut # (Auto) 6.59 H Lymph # (Auto) 2.48 [place] # (Auto) 0.98 H Eos # (Auto) 0.21 Baso # (Auto) 0.04 PT 10.5 INR 1.0 APTT 31.3 H PTT Ratio 1.2 Sodium 138 Potassium 3.6 Chloride 104 Carbon Dioxide 27 Anion Gap 7.0 BUN 16 Creatinine 1.27 Est Cr Clr Drug Dosing 123.3 Est GFR ( Amer) 77.5 Est GFR (Non-Af Amer) 66.8 BUN/Creatinine Ratio 12.5 Glucose 107 H Calcium 8.3 L Total Bilirubin 0.7 AST 37 ALT 65 Alkaline Phosphatase 110 Troponin I Total Protein 7.7 Albumin 3.9 Globulin 3.8 Albumin/Globulin Ratio 1.0 Lipase Medications Administered Active Medications Generic Name Dose Route Start Last Admin Trade Name Freq PRN Reason Stop Dose Admin Acetaminophen 1,000 mg 05/21/18 00:59 Ofirmev IV 06/20/18 00:58 Q8H PRN Pain or Fever Acetaminophen 650 mg 05/21/18 00:59 Tylenol PO 06/20/18 00:58 Q4H PRN Pain or Fever Al Hydrox/Mg Hydrox/Simethicone 15 ml 05/21/18 00:59 Maalox PO 06/20/18 00:58 Q4H PRN Dyspepsia Aspirin 81 mg 05/21/18 09:00 05/21/18 09:28 Ecotrin Ectab PO 06/20/18 08:59 81 mg QAM NAVEEN Administration Atorvastatin Calcium 10 mg 05/21/18 09:00 05/21/18 09:28 Lipitor PO 06/20/18 08:59 10 mg DAILY NAVEEN Administration Magnesium Hydroxide 30 ml 05/21/18 00:59 Milk Of Magnesia PO 06/20/18 00:58 Q12H PRN Constipation Ondansetron HCl 4 mg 05/21/18 00:59 Zofran IV 06/20/18 00:58 Q6H PRN NAUSEA/VOMITING Pantoprazole Sodium 40 mg 05/21/18 09:00 05/21/18 09:27 Protonix PO 06/20/18 08:59 40 mg DAILY NAVEEN Administration _ (1) Chest pain Chest pain type: unspecified Ischemic chest pain type: Qualified Code(s): R07.9 - Chest pain, unspecified
--- NOTE | 2018-05-21 15:48 | Discharge Summary ---
Date of Service May 21, 2018 Admission HPI Per Admitting Provider The patient is a 48-year-old male who initially developed left-sided chest discomfort that woke him up 2 days ago. The pain at times did radiate to his left arm. As the pain persisted, the patient presented to the emergency department for assessment, had a negative workup at that time, was advised to be admitted, but he went home at that time. The pain has persisted but to less intensity for the past 2 days. He presents to the emergency department today due to a friend bring him in. The pain has been constant over the past 2 days, but he does report that at times he is not aware of it. His symptoms also initially included dizziness with some nausea upon standing, which is somewhat improved at this time. He had no previous occurrences of these symptoms. He has not had any change in his eating or exercise habits. He has a very strong family history of heart disease, with his father, paternal grandfather and paternal uncle all having MIs at a young age. His sister recently had an ablation for an unknown diagnosis. He reports having a negative stress echo test done 2 years ago. Principal Diagnosis Chest pain Discharge Exam Constitutional WD/WN, vitals as above Respiratory normal respiratory effort, lungs clear to auscultation Cardiovascular RRR, no murmur, no edema Gastrointestinal (Abdomen) normal bowel sounds, soft, nontender, no hepatosplenomegaly Musculoskeletal no cyanosis or clubbing, extremities motor strength 5/5 Skin no rashes, warm and dry Neurologic CN's II-XI intact bilaterally Psychiatric A+Ox3, euthymic affect Discharge Data Allergies Allergy/AdvReac Type Severity Reaction Status Date / Time No Known Allergies Allergy Unknown Verified 05/20/18 22:16 Consultations 05/20/18 21:21 ED Decision to Admit Stat 05/21/18 00:59 Consult Case Management - Discharge Planning Routine 05/21/18 08:39 Consult Cardiology Routine Ordered Studies 05/21/18 13:14 MR cervical spine wo con Routine Hospital Course (1) Constricting chest pain often radiating down left arm: Patient was monitored on telemetry - he did have an episode of symptomatic sinus tachycardia this morning while washing up in the bathroom but otherwise EKGs and tele has been unremarkeable. His stress echo was normal with no wall motion abnormalities. Cardiology consult recommended: -- Begin Aspirin 81 mg daily for primary prevention. -- Continue Atorvastatin but consider titrating to 40 mg daily - patient will discharge with atorvastatin 20 mg and can continue to titrate at home -- Begin Metoprolol Succinate ER 50 mg daily Troponins negative x 3 He did have a very similar episode of chest pain with a negative stress echocardiogram 2 years ago. As no cardiac source was found, will send patient for cervical MRI outpatient. He declined to have this done in patient (2) Hyperlipidemia: Continue atorvastatin as above Check a fasting lipid panel and hemoglobin A1c (3) GERD (gastroesophageal reflux disease): Continue omeprazole (4) URI (upper respiratory infection): Recent cold - overall improving but with some blood streaked nasal mucous when he blows his nose. I did not see any blood in nares on exam. He does have a history of nasal polyps which may have become irritated while he was ill. His hgb is stable and he denies feeling any drainage down the back of his throat. He did not have any sinus tenderness to palpation or facial fullness with bending. His ear canals were erythematous bilaterally but did not appear acutely. Though I did no appreciate any fluid behind the TM it may be that he has some lingering Eustacian congestion that is contributing to his dizziness which has largely resolved Total Time Total Time Spent Total Time Spent (In Minutes): greater than 30 minutes Total Time Includes: Examination of the Patient, Discharge Planning, Medication Reconciliation and Communication With Other Providers Discharge Plan Discharge Items Patient Disposition: Home - Self-Care Reason For Visit: CHEST PAIN Discharge Diagnosis: non cardiac chest pain Discharge Goals: Diagnostic testing Activity: Resume your previous activity Non-emergency contact: Primary Care Provider Call non-emergency contact if: your symptoms worsen Follow-up/Referrals: [facility] [place] [facility] [Provider Group] - 05/28/18 7:45 am (Please, follow up at [facility] on SundayMay 28 at 7:45 am for an MRI of your cervical spine. You will use the main entrance and register at the big information receptionist desk in the lobby.) Deloris Vilchis MD [Primary Care Provider] - 05/28/18 10:20 am (Please, follow up with Dr. Vilchis on SundayMay 28 at 10:20 am. *If you need to change/cancel this appointment, call the office at [phone]. ) Diet: Heart Healthy [facility] Provider Instructions: You will go home with new prescriptions for daily baby aspirin and metoprolol, please see enclosed information on this medication. I have also increased your atorvastatin per cardiology's recommendation. Our nurse navigator will arrange your outpatient MRI and contact you. Please follow up with your primary care provider within about a week. Prescriptions: New atorvastatin 20 mg Tablet 20 mg PO DAILY 30 Days Qty: 30 RF: 0 metoprolol succinate 50 mg Tablet Extended Release 24 Hr 50 mg PO QAM 30 Days Qty: 30 RF: 0 aspirin [Ecotrin Low Strength] 81 mg Tablet,Delayed Release (Dr/Ec) 81 mg PO QAM 30 Days Qty: 30 RF: 0 Continue omeprazole 20 mg capsule,delayed release(DR/EC) 20 mg PO DAILY RF: 0 Discontinued atorvastatin 10 mg tablet 10 mg PO DAILY RF: 0 Stand-Alone Forms: My [facility] [employer] [facility]/Other Patient Handouts: Metoprolol Succinate Oral tablet extended- release Discharge Orders: Discharge Order (Routine); Ordered 05/21/18 Ordered By: Rizwana Asher Admission Data Admit Date/Time: 05/20/18 23:14 Attending Provider: Aime Braden Admit Provider: Gerardo Sanchez Primary Care Provider: Deloris Vilchis Other Providers: Gerardo Sanchez ; Rizwana Asher ; Harinder Perez Service: Telemetry Other Interventions: Discharge Summary Assessment (RN) Last Done: 05/21/18 16:16 DC Date/Time DO NOT enter until pt leaves facility: 05/21/18 17:08 Supervising Physician Co-Signing Physician Notes [employer] Physician Supervision Note: I discussed with Rizwana Asher [employer]IN[employer] and agree with findings and plan as documented in the note. Any exceptions or clarifications are listed here: None Documented By: Aime Braden
[2018-05-22] MEDS ORDERED: METOPROLOL SUCC 50MG EXT REL TAB PO SCH (09:00)
[2018-05-22] MEDS ORDERED: ATORVASTATIN 20 MG TAB PO SCH (09:00)
== END 2018-05-21 17:08 | disposition home or self-care (01) ==
LOC: ED 19:37 → 2S 19:37 → SUATTDRO 23:14 → 2S 05-21 00:18